=== PATIENT | female | born 1955 | race Caucasian/White ===

== ENCOUNTER → 2019-03-01 | Outpatient (CLI) | payer BC ==
[~2019-03-01] MED LIST: DICY20TA11 PO; METOPROLOL PO; ONDA4TAB7 PO
== END | disposition home or self-care (01) ==
LOC: RAH 08:02
PROVIDERS: ATTEND Family Medicine
DX: K57.90 Diverticulosis of intestine, part unspecified, without perforation or abscess without bleeding (principal); R31.9 Hematuria, unspecified; R16.0 Hepatomegaly, not elsewhere classified; I70.90 Unspecified atherosclerosis
CPT/HCPCS: 74176